=== PATIENT | female | born 1940 | race Caucasian/White ===

== ENCOUNTER 2021-03-25 14:31 | Outpatient (CLI) | payer MEDICARE, SELFPAY ==
--- NOTE | 2021-03-25 | ECG_ITS ---
Measurements Intervals [place] Rate: 68 P: 14 MO: 215 QRS: 9 QRSD: 98 T: 50 QT: 406 QTc: 434 Interpretive Statements SINUS RHYTHM WITH FIRST DEGREE AV BLOCK BASELINE ARTIFACT- I, II, III, AVR, AVL, AVF, V4-V6 ABNORMAL ECG Electronically Signed On 03-25-2021 15:20:29 CDT by Edwin Wasserman D.O.
[2021-03-25 15:08] LABS: Albumin Level 4.2 g/dL (3.5-5.1); Estimated Glomerular Filt Rate 48
== END 2021-03-25 14:32 | disposition home or self-care (01) ==
PROVIDERS: Visit Provider Orthopaedic Surgery
DX: Z01.818 Encounter for other preprocedural examination (principal); M17.11 Unilateral primary osteoarthritis, right knee; M81.0 Age-related osteoporosis without current pathological fracture; I10 Essential (primary) hypertension; I44.0 Atrioventricular block, first degree
CPT/HCPCS: 36415; 82040; 82565; 93005

== ENCOUNTER 2021-05-05 13:45 | Outpatient (CLI) | payer MEDICARE, SELFPAY ==
[2021-05-05 15:42] LABS: Basophils Percent Auto 0.5 % (0.2-1.2); Eosinophils Absolute Auto 0.1 K/mm3 (0-0.3); Eosinophils Percent Auto 2.2 % (0-4.4); Hematocrit 40.6 % (37.0-47.0); Hemoglobin 13.2 g/dL (12.0-15.0); Immature Granulocyte Absolute 0.01 K/mm3 (0.00-0.031); Immature Granulocyte Percent A 0.2 % (0-0.5); Lymphocytes Absolute Auto 2.15 K/mm3 (0.9-3.2); Lymphocytes Percent Auto 36.6 % (18.3-44.2); Mean Corpuscular HGB Conc 32.5 g/dl (32-36); Mean Corpuscular Volume 92.3 fl (80-100); Mean Platelet Volume 9.2 fl (7.4-10.4); Monocytes Absolute Auto 0.6 K/mm3 (0.1-0.6); Monocytes Percent Auto 10.2 % (2.6-8.5); Neutrophils Percent Auto 50.3 % (45.5-73.1); Platelet Count Result 221 k/mm3 (150-375); Red Cell Distribution Width 12.8 % (11.5-14.5); White Blood Count 5.9 K/mm3 (4.5-10.0)
[2021-05-05 15:50] LABS: Estimated Glomerular Filt Rate 54; Glucose 124 mg/dL (65-110)
[2021-05-05 16:29] LABS: Urine Cotinine NEGATIVE
[2021-05-05 17:24] LABS: Hemoglobin A1C 5.6 % (<5.7)
== END 2021-05-05 13:46 | disposition home or self-care (01) ==
LOC: ANHSURGERY 13:51
PROVIDERS: PCP Family Medicine; Visit Provider Orthopaedic Surgery
DX: M17.11 Unilateral primary osteoarthritis, right knee (principal); Z01.818 Encounter for other preprocedural examination
CPT/HCPCS: 80307; 82565; 82947; 83036; 85025; 87081

== ENCOUNTER 2021-08-16 07:42 | Outpatient (CLI) | payer MEDICARE, SELFPAY ==
[2021-08-16 09:40] LABS: Basophils Absolute Auto 0.1 K/mm3 (0.0-0.1); Basophils Percent Auto 1.1 % (0.2-1.2); Eosinophils Absolute Auto 0.2 K/mm3 (0-0.3); Eosinophils Percent Auto 3.7 % (0-4.4); Immature Granulocyte Absolute 0.01 K/mm3 (0.00-0.031); Immature Granulocyte Percent A 0.2 % (0-0.5); Lymphocytes Absolute Auto 1.67 K/mm3 (0.9-3.2); Lymphocytes Percent Auto 30.9 % (18.3-44.2); Mean Corpuscular HGB Conc 33.3 g/dl (32-36); Mean Corpuscular Hemoglobin 30.7 pg (26-34); Mean Platelet Volume 8.9 fl (7.4-10.4); Monocytes Absolute Auto 0.5 K/mm3 (0.1-0.6); Neutrophils Absolute Auto 2.9 K/mm3 (1.3-6.7); Neutrophils Percent Auto 54.1 % (45.5-73.1); Platelet Count Result 160 k/mm3 (150-375); Red Blood Count 4.24 M/mm3 (4.2-5.4); Red Cell Distribution Width 12.7 % (11.5-14.5); White Blood Count 5.4 K/mm3 (4.5-10.0)
[2021-08-16 09:43] LABS: Albumin Level 4.1 g/dL (3.5-5.1); Estimated Glomerular Filt Rate > 60; Glucose 133 mg/dL (65-110)
[2021-08-16 10:48] LABS: Hemoglobin A1C 5.5 % (<5.7)
[2021-08-16 12:30] LABS: Urine Cotinine NEGATIVE
== END 2021-08-16 07:43 | disposition home or self-care (01) ==
LOC: ANHSURGERY 07:51
PROVIDERS: PCP Family Medicine; Visit Provider Orthopaedic Surgery
DX: Z01.818 Encounter for other preprocedural examination (principal); M17.11 Unilateral primary osteoarthritis, right knee
CPT/HCPCS: 80307; 82040; 82565; 82947; 83036; 85025; 87081

== ENCOUNTER 2021-09-07 00:05 | Day surgery (SDC) | payer MEDICARE, SELFPAY ==
[2021-05-05 14:07] VITALS: BP 130/77; PULSE 93; RESP 18; TEMP 36.6; O2SAT 95; BMI 33.5
[2021-08-16 08:11] VITALS: BP 149/93; PULSE 68; RESP 18; TEMP 36.4; O2SAT 94; BMI 35.2
--- NOTE | 2021-08-16 09:25 | PC.NURSE ---
Report to the Outpatient Waiting Room, entrance under the green pavilion located off [facility], at time ___829____ on date ___09/07/21____. OR Time: 1029___. - You and your visitor will be asked a series of questions to screen for COVID 19 for your protection. - A mask is required within the hospital. - Only one visitor is allowed at this time. Patient visitors will be guided where to wait when not with patient. Preoperative COVID Testing Requirements: No COVID Test needed if: (proof is required; if not received patient will have Rapid Test prior to entry) - Patient has received COVID Vaccine at least 14 days prior to procedure date or - Patient has positive COVID test result within last 90 days of surgery date. COVID Test needed if above criteria is not met If not COVID vaccinated a COVID test must be conducted within 72 hours of surgery and patient is asked to isolate self from time of testing until procedure. You will go to the [facility] for your COVID testing. The [facility] site is located at the corner of [address] [facility]. You will only be called if COVID results are positive and your surgeon may reschedule your elective surgery date. Patients may have clear liquids (water, carbonated beverages, clear teas, apple juice) until 3 hours prior to surgery with a maximum of 20 ounces. - No food from midnight until time of surgery - Infants may have breast milk until 4 hours before surgery, infant formula 6 hours prior to surgery. - Children will be allowed to drink immediately following surgery. If applicable, please bring a bottle or sippy cup to assist with drinking. Juice, water, soda, and popsicles are readily available. For infants on formula, please bring formula the day of surgery. Pacifiers are allowed. Take the following medications with a SIP of water the morning of surgery: ____METOPROLOL Medications to discontinue per physician _ASPIRIN & IBUPROFEN 7 DAYS PRE-OP, ALL VITAMINS/SUPPLEMENTS 3 DAYS PRE-OP Date to take last dose Please no make-up, nail chadian, hairspray, perfume, deodorant, or body powder the day of surgery. No jewelry (including any body piercings) or valuables the day of surgery, leave them at home. Please take a shower or bath the night before, or the morning of, surgery with an antibacterial soap. Wear comfortable, loose fitting clothing. Children are encouraged to wear pajamas. - Jewelry must be removed prior to entering the operating room. Rings and piercings that are not removed may be cut off. - The hospital will not accept responsibility for valuables. - Please leave all valuables, including medications, at home the day of surgery. If you are going home after surgery, a licensed trash collector truck driver must drive you home. - NO public transportation without another adult. - We recommend that an adult stay with you for 24 hours following discharge. - We also recommend that you do not drive, make important decision, drink alcoholic beverages, or take any drugs that were not prescribed by your health care provider for at least 24 hours after your discharge time. For Pediatric surgeries, we recommend two adults accompany the child home (only one inside the building at this time). Follow any additional instructions given to you from your surgeon. Telephone instructions given to _PATIENT and asked if any additional questions and then verbalized understanding. Patient advised to call surgeon office or pre surgery nurse liaison [phone] if any additional questions.
--- NOTE | 2021-09-06 10:03 | P.PNAN_ITS ---
Anes - Initial Pre Proc Eval Procedure: Operation Date: 09/07/21 10:30 Proposed Procedures p Right Total Knee Arthroplasty - Melquiades Smith MD Date/Time: 09/06/21 10:03 Surgeon: Melquiades Smith MD Pre Op Diagnosis: primary osteoarthritis rt knee Patient Data Age: 80 Gender: F Height: 1.52 m Weight: 81.9 kg Last Vital Signs Temp 36.4 C L 08/16/21 08:11 Pulse 68 08/16/21 08:11 Resp 18 08/16/21 08:11 BP 149/93 H 08/16/21 08:11 Pulse Ox 94 08/16/21 08:11 Allergies Allergy/AdvReac Type Severity Reaction Status Date / Time hormone patches Allergy Mild Swelling, Uncoded 09/07/21 08:26 REDNESS AT SITE Home Medications Medication Instructions Recorded Confirmed Type ibuprofen 800 mg tablet 800 mg PO TID PRN 02/25/21 09/07/21 History metoprolol succinate 25 mg 25 mg PO QAM 02/25/21 09/07/21 History tablet,extended release 24 hr omeprazole 20 mg tablet,delayed 20 mg PO DAILY 02/25/21 09/07/21 History release venlafaxine 150 mg tablet,extended 150 mg PO HS 02/25/21 09/07/21 History release 24 hr aspirin 81 mg tablet,delayed 81 mg PO DAILY 05/05/21 09/07/21 History release ascorbic acid (vitamin C) 1 g PO DAILY 08/16/21 09/07/21 History calcium carbonate-vitamin D3 1 tablet PO DAILY 08/16/21 09/07/21 History [Calcium + D] cholecalciferol (vitamin D3) 50 mcg PO DAILY 08/16/21 09/07/21 History lgnwhqjipojf-Gc-mtba-minerals 1 tablet PO DAILY 08/16/21 09/07/21 History [Multiple Vitamin, Womens] Patient hx anesthesia problems: none Family hx anesthesia problems: none Results Review: All pre-operative results and documents have been reviewed as part of the pre-operative evaluation. [facility] Past Medical History Medical History (Updated 09/06/21 @ 10:04 by Richardson Mccord MD) Hypertension Obesity Osteoporosis Surgical History Surgical History History of surgery on arm Family History Family History Mother Arthritis Social History Social History Smoking status: Never smoker Alcohol intake: never Substance use: never Living arrangements: with family Additional living arrangements comments: [facility] Spiritual care concerns: No Anes - Eval Final PreProcedure Day of Procedure 09/06/21 10:03 Patient weight: obese Heart: regular rate and rhythm Lungs: clear to auscultation and normal air movement Airway: Mallampati scale class II Neurological: alert and oriented Last oral intake: >/= 8 hours ASA classification: III Emergent: no Anesthetic plan: proceed Anesthesia type and monitoring: general LMA Results Review: All pre-operative results and documents have been reviewed as part of the pre-operative evaluation. Informed Consent: The patient's anesthetic plan and its attendant risks and benefits were discussed with the patient/family/POA. Questions were solicited and answers provided to the satisfaction of the patient/family/POA.
[2021-09-07] VITALS (15 sets, daily range): BP systolic 87–149; BP diastolic 49–79; PULSE 67–86; RESP 10–20; TEMP 36.4–36.9; O2SAT 85–98; BMI 37.1
--- NOTE | ~2021-09-07 | XR_ITS ---
EXAMINATION: XR knee RT 2V DATE: 09/07/2021 13:34 INDICATION: Right knee arthroplasty. Postop. TECHNIQUE: 2 views of right knee were obtained. COMPARISON: Right knee radiographs 08/30/2021 FINDINGS: There is a total right knee arthroplasty with patellar resurfacing in near-anatomic alignme nt. No fracture. There is gas in the knee joint and soft tissues, consistent with recent surgery. IMPRESSION: 1. Total right knee arthroplasty in near-anatomic alignment. Reviewed, dictated and finalized at location B. DYNAMICS TEACHER
[2021-09-07] MEDS: LACTATED RINGERS 1,000 ML 30 ML IV CONT ×2 (08:41→13:21)
[2021-09-07] MEDS: ACETAMINOPHEN 500 MG TABLET 1000 MG PO (08:41)
[2021-09-07] MEDS: TRANEXAMIC ACID 1,000MG/ISO100 1,000 MG/100 ML BAG 200 MG IVPB (10:10)
--- NOTE | 2021-09-07 10:10 | WPDHPUPDATE1 ---
History and Physical Update Update Date/Time: 09/07/21 10:10 History and Physical has been reviewed, including an updated exam of the patient. There are NO changes in the patient's condition. Risks, benefits, and alternatives have been discussed and questions answered. Patient agrees to proceed with procedure.
--- NOTE | 2021-09-07 11:01 | WPDANESPNB ---
Anes - Peripheral Nerve Block Date/Time: 09/07/21 11:01 I have discussed with the patient/family/POA the placement of a peripheral nerve block for post-operative pain management, including associated risks, benefits, complications, and side effects. Alternative methods of post-operative analgesia were detailed. Questions were solicited and answers provided to the satisfaction of the patient/family/POA. Time-Out: A pre-procedural Time-Out was completed immediately before starting the procedure and confirmed: Patient Identification, Site, Procedure, Patient Position and the Availability of Requisite Equipment. Clinical Indications: Acute post-operative pain management requested by the operative surgeon. Nerve Block Insertion Note Anes-nerve block: adductor canal right Patient position: supine Skin prep: chlorhexidine Needle: 22 gauge, stimulating, insulated echogenic needle. Needle length: 80 mm Technique: ultrasound Technique comment: in plane Injectate: bupivacaine 0.5% with epi 5 mcg/ml (30cc) Observations: tolerated well Complications: none Procedure start time:: 1055 Procedure end time:: 1100
[2021-09-07] MEDS: ceFAZolin 2 GM/D5W 50 ML 2 GM/50 ML BAG IVPB ×2 (11:07→18:20)
--- NOTE | 2021-09-07 14:28 | SUR.PHASEI ---
1430 sbar faxed floor notified
--- NOTE | 2021-09-07 15:20 | ADMGEN ---
This patient, Barbara Castillo, was admitted to -. Patient/family oriented to hospital policies and general routines including ID bracelet, bed and alarms, visiting hours, pain management, procedures, bathroom and other care routines, personal items, smoking policy, room service/diet, and visiting hours. Information on how to activate the Rapid Response Team has been discussed. Patient/Family are encouraged to report perceived risks to care and to ask questions if they do not understand what they are told or what they should do.
[2021-09-07] MEDS: SODIUM CHLORIDE 0.9% IV 1,000 ML 125 ML IV CONT (16:07)
--- NOTE | 2021-09-07 16:20 | W.PM.PROC2 ---
Procedure Note - Detailed Date of Procedure 09/07/21 Pre-op Diagnosis Osteoarthritis right knee Post-op Diagnosis same Procedure Performed Right total knee arthroplasty. Surgeon Melquiades Smith MD Electrical Repairer Katerine Saba PA-C Anesthesia general and regional Description of Procedure The patient was given a nerve block preoperatively, and then brought to the operating room. A general anesthetic was administered. The leg was prepped and draped in the usual sterile fashion. The limb was elevated and the tourniquet inflated to 300 mmHg during initial exposure, and cementation. A longitudinal incision was created along the medial border of the patella and patellar tendon, and a minimally invasive optimized mid-vastus approach to the knee was performed. A mild medial release was taken. The knee was then flexed. The osteophytes were carefully removed. The intramedullary guide was placed in the femoral canal. The distal femoral resection was then taken with the oscillating saw. The collateral ligaments were carefully protected. The tibia was carefully exposed. The jig was applied, and the proximal tibia was resected according to preoperative plan. The knee was balanced in extension. Appropriate releases were taken where needed. The anterior cruciate ligament and meniscal remnants were removed. The posterior cruciate ligament was preserved. The patella was measured. Patellar resection was carried out with the oscillating saw. The lug holes drilled. The femur was sized and rotation assessed using a combination of gap balancing, posterior referencing, and the AP axis. The 4 in 1 cutting block was used to finish the femoral cuts after equal gaps were assured. The lug holes were drilled. The osteophytes were carefully removed from the back of the knee. The knee was copiously irrigated with antibiotic solution periodically throughout the procedure. The meniscal remnants were removed. The spacer block was used to confirm equal flexion and extension gaps. Further releases were performed as needed. The tibia was sized and broached. The bony surfaces were prepared for cementing with pulsatile lavage. The real tibial component was cemented into position followed by the femur and patella. Patellar tracking was carefully assessed. No additional releases were required. The wound was closed with #1 Vycril suture, #2 Quill suture, 0-Quill suture, and 3-0 barbed suture followed by Steri-Strips. A sterile bulky dressing was applied. Meticulous hemostasis was maintained throughout the procedure. There were no complications. The patient was extubated and brought to the recovery room in stable condition after the application of sterile dressing with Nadeem bandage. Implants Sean Triathlon knee system, low profile cemented tibia size 4, cemented femoral component size 4 ,and an 11 mm cruciate stabilizing polyethylene insert. 35mm asymmetric all poly patella component. Estimated Blood Loss 100 Drains No Pathology none sent Complications No immediate complications Condition stable Disposition PACU
[2021-09-07] MEDS: SENNA/DOCUSATE SODIUM TABLET 2 TAB PO (16:44)
[2021-09-07] MEDS: ASPIRIN 81 MG ENTERIC TABLET PO (16:44)
[2021-09-07] MEDS: VENLAFAXINE HCL XR 75 MG CAP.ER.24H 150 MG PO (20:21)
[2021-09-08 00:45] VITALS: BP 106/48; PULSE 68; RESP 20; TEMP 36.5; O2SAT 94
[2021-09-08] MEDS: ceFAZolin 2 GM/D5W 50 ML 2 GM/50 ML BAG IVPB ×2 (03:02→10:54)
[2021-09-08 03:40] VITALS: BP 120/56; PULSE 73; RESP 20; TEMP 36.3; O2SAT 94
[2021-09-08 06:09] LABS: Basophils Percent Auto 0.1 % (0.2-1.2); Hematocrit 32.6 % (37.0-47.0); Hemoglobin 11.1 g/dL (12.0-15.0); Immature Granulocyte Absolute 0.03 K/mm3 (0.00-0.031); Immature Granulocyte Percent A 0.3 % (0-0.5); Lymphocytes Absolute Auto 1.41 K/mm3 (0.9-3.2); Lymphocytes Percent Auto 14.5 % (18.3-44.2); Mean Corpuscular Volume 88.1 fl (80-100); Mean Platelet Volume 9.4 fl (7.4-10.4); Monocytes Absolute Auto 0.8 K/mm3 (0.1-0.6); Monocytes Percent Auto 8.4 % (2.6-8.5); Neutrophils Absolute Auto 7.5 K/mm3 (1.3-6.7); Neutrophils Percent Auto 76.7 % (45.5-73.1); Platelet Count Result 177 k/mm3 (150-375); White Blood Count 9.8 K/mm3 (4.5-10.0)
[2021-09-08 06:18] LABS: Anion Gap 10 mmol/L (8-16); Blood Urea Nitrogen 24 mg/dL (7-17); Calcium 8.6 mg/dL (8.4-10.2); Carbon Dioxide 23 mmol/L (22-30); Chloride 100 mmol/L (98-107); Estimated CRCL calculation 44 ml/min; Estimated Glomerular Filt Rate > 60; Glucose 117 mg/dL (65-110); Potassium 4.3 mmol/L (3.4-5.0); Sodium 133 mmol/L (137-145)
[2021-09-08 08:00] VITALS: O2SAT 94
--- NOTE | 2021-09-08 08:01 | P.PNAN_ITS ---
Anes - Prog Note Post-Op Date/Time: 09/08/21 08:01 Cardiovascular status: normal Respiratory status: normal Airway patency: baseline Mental status: baseline Post-Op hydration status: normal Vital Signs: Last Vital Signs Temp 36.3 C L 09/08/21 03:40 Pulse 73 09/08/21 03:40 Resp 20 09/08/21 03:40 BP 120/56 L 09/08/21 03:40 Pulse Ox 94 09/08/21 03:40 Pain Score (VAS): 4 I/O: Intake & Output 09/07/21 09/08/21 09/08/21 23:59 07:59 15:59 Intake Total 2018 490 Output Total 400 Balance 2018 90 Laboratory Tests 09/08/21 05:25 09/08/21 05:25 09/07/21 09/08/21 09/08/21 08:25 05:25 05:25 WBC 9.8 RBC 3.70 L Hgb 11.1 L Hct 32.6 L MCV 88.1 MCH 30.0 MCHC 34.0 RDW 12.0 Plt Count 177 MPV 9.4 Immature Gran % (Auto) 0.3 Neut % (Auto) 76.7 H Lymph % (Auto) 14.5 L [place] % (Auto) 8.4 Eos % (Auto) 0.0 Baso % (Auto) 0.1 L Lymph # (Auto) 1.41 [place] # (Auto) 0.8 H Eos # (Auto) 0.0 Baso # (Auto) 0.0 Abs Immat Gran (auto) 0.03 Absolute Neuts (auto) 7.5 H Absolute Nucleated RBC 0.0 Nucleated RBC % 0.0 Sodium 133 L Potassium 4.3 Chloride 100 Carbon Dioxide 23 Anion Gap 10 BUN 24 H Creatinine 0.90 Estim Creat Clear Calc 44 Estimated GFR > 60 Glucose 117 H Calcium 8.6 Blood Type B Positive Antibody Screen Negative Post-procedural complaints: none Patient Feedback: Patient satisfied with anesthetic care.
[2021-09-08 08:56] VITALS: BP 109/90; PULSE 80; PULSE 81; RESP 20; TEMP 37.2; O2SAT 97
[2021-09-08] MEDS: ASPIRIN 81 MG ENTERIC TABLET PO (08:56)
[2021-09-08] MEDS: polyethylene glycoL 3350 17 GM POWD.PACK PO (08:56)
[2021-09-08] MEDS: PANTOPRAZOLE 40 MG TABLET PO (08:56)
[2021-09-08] MEDS: METOPROLOL SUCCINATE EXT REL 25 MG TABCR PO (08:56)
[2021-09-08] MEDS: SENNA/DOCUSATE SODIUM TABLET 2 TAB PO (08:56)
[2021-09-08 11:58] VITALS: BP 121/70; PULSE 70; RESP 18; TEMP 36.9; O2SAT 99
--- NOTE | 2021-09-08 12:44 | PM.DS ---
DS: Admitting Diagnosis Discharge Date 09/08/21 Admitting Diagnosis OA knee Right DS: Discharge Diagnosis Discharge Diagnosis (1) Status post total right knee replacement: Code(s): Z96.651 - Presence of right artificial knee joint Status: Acute Assessment and Plan: Postop day 1: Right total knee arthroplasty. Patient tolerated procedure well. No complications. Pain manageable with pain medication. No numbness or tingling. We had a lengthy discussion regarding postoperative wound care, limitations, expectations, and exercises. Patient shows good understanding. He has had initial physical therapy and is tolerating it well. She understands to read to the green instruction sheet. DVT prophylaxis: 81 mg baby aspirin b.i.d. for 14 days. Pain medication: Percocet. Ibuprofen. Patient has followup appointment with Dr. Smith in 1 week. 09/14/21 at 1:30 pm. DS: Summary Hospital Course Reason for hospitalization: Total knee arthroplasty Hospital Course: Patient tolerated procedure well. Has had initial PT/OT. No complications. Pain well managed. Status at Discharge Functional status at discharge: uses cane/walker Overall status at discharge: patient is progressing back to baseline Time Spent with Patient Time attestation: Total time spent providing and/or coordinating discharge services: Exam Narrative: Overweight elderly female. Baseline mental status. Hard of hearing. Resting comfortably in bed. No acute distress. A&O x3. Wearing compression socks bilaterally. Dressing intact with no drainage. Moderate swelling. No ecchymosis. No erythema. No hematoma. Good early range of motion. Calf nontender. Neurologic status intact. No varicosities. Distal pulses palpable. DS: Data Data Completed and Pending Labs on day of discharge: Labs from last 24 hours 09/08/21 09/08/21 05:25 05:25 WBC 9.8 RBC 3.70 L Hgb 11.1 L Hct 32.6 L MCV 88.1 MCH 30.0 MCHC 34.0 RDW 12.0 Plt Count 177 MPV 9.4 Immature Gran % (Auto) 0.3 Neut % (Auto) 76.7 H Lymph % (Auto) 14.5 L [place] % (Auto) 8.4 Eos % (Auto) 0.0 Baso % (Auto) 0.1 L Lymph # (Auto) 1.41 [place] # (Auto) 0.8 H Eos # (Auto) 0.0 Baso # (Auto) 0.0 Abs Immat Gran (auto) 0.03 Absolute Neuts (auto) 7.5 H Absolute Nucleated RBC 0.0 Nucleated RBC % 0.0 Sodium 133 L Potassium 4.3 Chloride 100 Carbon Dioxide 23 Anion Gap 10 BUN 24 H Creatinine 0.90 Estim Creat Clear Calc 44 Estimated GFR > 60 Glucose 117 H Calcium 8.6 Discharge Plan Discharge Patient Disposition: Home, Self-Care Discharge Instructions: See green instruction sheet Stand Alone Forms: General Discharge Instructions Follow-up/Referrals: Katerine Saba PA [Physician Silk Presser] - Discharge Medications: New aspirin 81 mg tablet,delayed release (DR/EC) 81 mg PO BID 14 Days Qty: 28 RF: 0 oxycodone-acetaminophen 5-325 mg tablet 1 - 2 tablet PO Q4-6H MDD 6 PRN (Reason: pain) Qty: 30 RF: 0 Continued omeprazole 20 mg tablet,delayed release (DR/EC) 20 mg PO DAILY RF: 0 venlafaxine 150 mg tablet extended release 24hr 150 mg PO HS RF: 0 ibuprofen 800 mg tablet 800 mg PO TID PRN (Reason: Pain) RF: 0 metoprolol succinate 25 mg tablet extended release 24 hr 25 mg PO QAM RF: 0 xtvlsowlreye-Fg-njwy-minerals Tablet 1 tablet PO DAILY RF: 0 ascorbic acid (vitamin C) 1,000 mg Tablet 1 g PO DAILY RF: 0 calcium carbonate-vitamin D3 600 mg(1,500mg) -200 unit Tablet 1 tablet PO DAILY RF: 0 cholecalciferol (vitamin D3) 50 mcg (2,000 unit) Tablet 50 mcg PO DAILY RF: 0 Held aspirin [Adult Low Dose Aspirin] 81 mg tablet,delayed release (DR/EC) 81 mg PO DAILY RF: 0 Hold Instructions: Resume on 09/22/21. Take twice a day for 2 weeks then back to one per day dose
== END 2021-09-08 14:42 | disposition home or self-care (01) ==
LOC: ANHSURGERY 07:55 → ANH2MED 15:40
PROVIDERS: Physician Assistant Surgical; PCP Family Medicine; Visit Provider Orthopaedic Surgery
PROC: (CPT 27447; principal; 2021-09-07 10:30)
DX: M17.11 Unilateral primary osteoarthritis, right knee (principal); G89.18 Other acute postprocedural pain; I10 Essential (primary) hypertension; M81.0 Age-related osteoporosis without current pathological fracture; Z79.82 Long term (current) use of aspirin; E66.9 Obesity, unspecified; Z68.37 Body mass index [BMI] 37.0-37.9, adult
CPT/HCPCS: 27447; 64447; 36415; 73560; 80048; 80307; 82040; 82565; 82947; 83036; 85025; 86850; 86900; 86901; 87081; 97110; 97116; 97161; 97166; A9270; C1713; C1776; J0131; J0171; J0330; J0690; J1100; J1885; J2250; J2270; J2370; J2405; J2704; J2710; J2795; J3010; J7030; J7120

== ENCOUNTER 2023-02-04 08:28 | Emergency (ER) | payer MEDICARE, SELFPAY ==
[2023-02-04] VITALS (10 sets, daily range): BP systolic 133–147; BP diastolic 70–94; PULSE 71–97; RESP 18–20; TEMP 36.4; O2SAT 95–100
--- NOTE | ~2023-02-04 | XR_ITS ---
EXAMINATION: XR chest 2V DATE: 02/04/2023 10:03 INDICATION: Cough and congestion TECHNIQUE: Frontal and lateral views of the chest are obtained COMPARISON: None available FINDINGS: There are minimal airspace opacities of the lung bases. No pleural effusion or pneumothorax . The cardiomediastinal silhouette is normal. There is severe thoracic spondylosis. IMPRESSION: 1. Bibasilar airspace opacities, consistent with atelectasis versus pneumonia. Reviewed, dictated and finalized at location A.
[2023-02-04 10:22] LABS: Influenza A QL RT-PCR Negative (Negative); Influenza B QL RT-PCR Negative (Negative); RSV RNA, RT-PCR Negative (Negative); SARS-CoV-2 RNA PCR Negative (Negative)
[2023-02-04] MEDS: IPRATROPIUM BR 0.02% INH SOLN 0.5 MG/2.5 ML VIAL INHALATION (10:47)
[2023-02-04] MEDS: LEVALBUTEROL NEB 1.25 MG/3 ML INHALATION (10:47)
--- NOTE | 2023-02-04 11:22 | ED.GENADULT ---
HPI - General Adult General Chief complaint: Upper Respiratory Infection Stated complaint: cough, congestion Time Seen by Provider: 02/04/23 09:42 History of Present Illness HPI narrative: Patient is an 82-year-old female who presents ER with chest congestion. Ongoing over the last week. Associated shortness of breath. She does have some cough as well. No fevers or chills. She was seen by her PCP and given an inhaler but does not feel like it is helping her. No known sick contacts. No orthopnea. Related Data Home Medications Medication Instructions Recorded Confirmed ibuprofen 800 mg tablet 800 mg PO TID PRN Pain 02/25/21 11/29/21 metoprolol succinate 25 mg 25 mg PO QAM 02/25/21 11/29/21 tablet,extended release 24 hr omeprazole 20 mg tablet,delayed 20 mg PO DAILY 02/25/21 11/29/21 release aspirin 81 mg tablet,delayed 81 mg PO DAILY 05/05/21 11/29/21 release (Adult Low Dose Aspirin) ascorbic acid (vitamin C) 1,000 mg 1 g PO DAILY 08/16/21 11/29/21 tablet calcium carbonate 600 mg-vitamin 1 tablet PO DAILY 08/16/21 11/29/21 D3 5 mcg (200 unit) tablet cholecalciferol (vitamin D3) 50 50 mcg PO DAILY 08/16/21 11/29/21 mcg (2,000 unit) tablet szfkwfazlhyd-El-sstd-minerals 1 tablet PO DAILY 08/16/21 11/29/21 Allergies Allergy/AdvReac Type Severity Reaction Status Date / Time hormone patches Allergy Mild Swelling, Uncoded 02/04/23 09:40 REDNESS AT SITE Review of Systems Review of Systems: All systems reviewed & are unremarkable except as noted in HPI and below Constitutional: Constitutional: Denies chills, Denies fatigue and Denies fever(s) ENT: Denies nasal congestion and Denies sore throat Cardiovascular: Cardiovascular: Denies chest pain and Denies rapid heart rate Respiratory: Respiratory: Reports chest congestion, Reports cough and Reports dyspnea Gastrointestinal: Gastrointestinal: Denies abdominal pain, Denies nausea and Denies vomiting PMF Past Medical History Medical History Hypertension Obesity Osteoporosis Surgical History Surgical History History of surgery on arm Family History Family History Mother Arthritis Social History Social History (Updated 09/21/22 @ 10:37 by Ashley Wan MA) Smoking status: Never smoker Second hand tobacco smoke exposure: No Alcohol intake: never Substance use: never Substance use type: does not use Lack of Transportation: No Lack of Food: Never True Current Housing: I Have Housing Concerned About Future Housing: No Difficulty Paying Gas/Electric Bills: No Difficulty Paying for Meds: No Currently Unemployed: No Education: High School Diploma/GED Difficulty w/ Childcare or Family Care: No Living arrangements: with family [facility] Spiritual care concerns: No Exam Narrative: GENERAL: Well-appearing, well-nourished, and in no acute distress. HEAD: Normocephalic, atraumatic. EYES: PERRL and EOMI. ENT: Mucous membranes moist. CHEST: Wheezing worse right as opposed to left. No respiratory distress. HEART: Regular rate and rhythm. Normal peripheral pulses. ABDOMEN: Soft, nontender, nondistended. EXTREMITIES: Normal range of motion. No edema. SKIN: Warm, dry, no rash. NEURO: Alert and oriented x3. PSYCH: Normal mood and affect. Course Course Emergency Course: Patient resting comfortably, COVID/flu negative, chest x-ray borderline for pneumonia, patient with increased wheezing after breathing treatment so she will be giving a continuous neb. After continuous nebulizer treatment patient has significantly improved lung sounds and is appropriate for discharge. No hypoxia. We will add on steroids and azithromycin to treatment plan. Vital Signs Vital signs: Vital Signs Temperature
[2023-02-04] MEDS: IPRATROPIUM BR 0.02% INH SOLN 0.5 MG/2.5 ML VIAL 1 MG INHALATION (12:37)
[2023-02-04] MEDS: LEVALBUTEROL NEB 1.25 MG/3 ML 2.5 MG INHALATION (12:37)
== END 2023-02-04 14:14 | disposition home or self-care (01) ==
PROVIDERS: Physician Assistant; Emergency Provider Emergency Medicine
DX: J18.9 Pneumonia, unspecified organism (principal); J40 Bronchitis, not specified as acute or chronic; Z20.822 Contact with and (suspected) exposure to COVID-19; I10 Essential (primary) hypertension; E66.9 Obesity, unspecified; Z68.34 Body mass index [BMI] 34.0-34.9, adult; M81.0 Age-related osteoporosis without current pathological fracture
CPT/HCPCS: 71046; 87637; 94640; 99283

== ENCOUNTER 2023-03-19 17:56 | Emergency (ER) | payer MEDICARE, SELFPAY ==
--- NOTE | ~2023-03-19 | XR_ITS ---
Left Knee Technique: AP, lateral, and oblique views were obtained. Clinical History: Status post fall Findings: No fracture or dislocation is seen. There is moderate degenerative change of the medial com partment, with medial compartment narrowing and medial joint and osteophyte formation. There is moder ate patellofemoral compartment degenerative change with probable joint space narrowing and osteophyte formation. There is chondrocalcinosis of the menisci. No joint effusion is seen. Impression: Moderate degenerative change of the medial and patellofemoral compartments. Chondrocalcinosis of the menisci. Reviewed, dictated and finalized at location M. Impression: Moderate degenerative change of the medial and patellofemoral compartments. Chondrocalcinosis of the menisci.
--- NOTE | ~2023-03-19 | CT_ITS ---
Non-contrast Head CT History: Status post fall, headache Technique: Axial non-contrast imaging of the brain was performed. Dose reduction technique was used on this scan by utilizing automated exposure control and iterative reconstruction technique. The dose -length product (DLP) was 529.67 mGy-cm. Findings: There is no evidence of intracranial hemorrhage, mass lesion, or acute infarct. Brain par enchyma appears normal. The ventricles and subarachnoid spaces are normal in size. The calvarium ap pears normal. The visualized paranasal sinuses and mastoid air cells are clear. Impression: No significant abnormality seen. Reviewed, dictated and finalized at location . Impression: No significant abnormality seen.
[2023-03-19 17:57] VITALS: BP 138/67; PULSE 87; RESP 18; TEMP 36.2; O2SAT 95
--- NOTE | 2023-03-19 18:27 | ED.FALL ---
HPI - Fall General Chief Complaint: Fall Stated Complaint: fall Time Seen by Provider: 03/19/23 18:02 History of Present Illness HPI Narrative: Patient is an 82-year-old female presenting after a fall. Patient states that she was walking on a sidewalk that had a large uneven crack in it. She tripped on it and fell striking the left side of her head. She did not lose consciousness. States that she has some dull ache on the left side of her head but denies any other pain. No neck or back pain. No vision changes. Patient's daughter is at bedside and states that she does have some blood in her left eye. States that she had a nosebleed earlier which has resolved. No chest pain, lightheadedness, shortness of breath, numbness or weakness, nausea or vomiting. States that she also landed on her left knee and it is somewhat sore. Related Data Home Medications Medication Instructions Recorded Confirmed ibuprofen 800 mg tablet 800 mg PO TID PRN Pain 02/25/21 11/29/21 metoprolol succinate 25 mg 25 mg PO QAM 02/25/21 11/29/21 tablet,extended release 24 hr omeprazole 20 mg tablet,delayed 20 mg PO DAILY 02/25/21 11/29/21 release aspirin 81 mg tablet,delayed 81 mg PO DAILY 05/05/21 11/29/21 release (Adult Low Dose Aspirin) ascorbic acid (vitamin C) 1,000 mg 1 g PO DAILY 08/16/21 11/29/21 tablet calcium carbonate 600 mg-vitamin 1 tablet PO DAILY 08/16/21 11/29/21 D3 5 mcg (200 unit) tablet cholecalciferol (vitamin D3) 50 50 mcg PO DAILY 08/16/21 11/29/21 mcg (2,000 unit) tablet crxtibmhldqc-Ww-dhah-minerals 1 tablet PO DAILY 08/16/21 11/29/21 Allergies Allergy/AdvReac Type Severity Reaction Status Date / Time hormone patches Allergy Mild Swelling, Uncoded 02/04/23 09:40 REDNESS AT SITE Review of Systems Review of Systems: All systems reviewed & are unremarkable except as noted in HPI and below PMFSH Past Medical History Medical History Hypertension Obesity Osteoporosis Surgical History Surgical History History of surgery on arm Family History Family History Mother Arthritis Social History Social History Smoking status: Never smoker Second hand tobacco smoke exposure: No Alcohol intake: never Substance use: never Substance use type: does not use Lack of Transportation: No Lack of Food: Never True Current Housing: I Have Housing Concerned About Future Housing: No Difficulty Paying Gas/Electric Bills: No Difficulty Paying for Meds: No Currently Unemployed: No Education: High School Diploma/GED Difficulty w/ Childcare or Family Care: No Living arrangements: with family Additional living arrangements comments: [facility] Spiritual care concerns: No Exam Narrative: GENERAL: Well-appearing, well-nourished, and in no acute distress. HEAD: Normocephalic, atraumatic. EYES: PERRLA and EOMI. +left subconjunctival hemorrhage ENT: Nares clear, no rhinorrhea or epistaxis. Mucous membranes moist. small amount of dried blood L nare; no septal hematoma, no active bleeding NECK: Supple. CHEST: Clear to auscultation. No respiratory distress. HEART: Regular rate and rhythm. ABDOMEN: Soft, nontender, nondistended EXTREMITIES: Normal range of motion. No edema. SKIN: Warm, dry, no rash. NEURO: No focal deficits. Alert and oriented x3. PSYCH: Normal mood and affect. Course Vital Signs Vital signs: Vital Signs Temperature 97.2 F L 03/19/23 17:57 Pulse Rate 87 03/19/23 17:57 Respiratory Rate 18 03/19/23 17:57 Blood Pressure 138/67 03/19/23 17:57 Pulse Oximetry 95 03/19/23 17:57 Oxygen Delivery Room Air 03/19/23 17:57 Temperature 98.5 F 03/19/23 20:18 Pulse Rate 72 03/19/23 20:18 Respiratory Rate 15
[2023-03-19 19:09] VITALS: BP 127/101; PULSE 83; RESP 15; TEMP 36.6; O2SAT 95
[2023-03-19 20:18] VITALS: BP 129/87; PULSE 72; RESP 15; TEMP 36.9; O2SAT 93
== END 2023-03-19 20:19 | disposition home or self-care (01) ==
PROVIDERS: Emergency Provider Emergency Medicine
DX: S09.90XA Unspecified injury of head, initial encounter (principal); H11.32 Conjunctival hemorrhage, left eye; M25.562 Pain in left knee; W01.0XXA Fall on same level from slipping, tripping and stumbling without subsequent striking against object, initial encounter; I10 Essential (primary) hypertension; M81.0 Age-related osteoporosis without current pathological fracture; Z79.82 Long term (current) use of aspirin
CPT/HCPCS: 70450; 73562; 99284

== ENCOUNTER 2023-08-27 17:33 | Emergency (ER) | payer MEDICARE, SELFPAY ==
--- NOTE | ~2023-08-27 | CT_ITS ---
EXAMINATION: CT abdomen pelvis w con DATE: 08/27/2023 20:10 INDICATION: lower abd pain, alternating const/diarrhea TECHNIQUE: Computed tomography (CT) of the abdomen and pelvis was performed with 100 mL Omnipaque-350 intravenous contrast. Automated exposure control and iterative reconstruction technique were employe d. The dose-length product was 868.44 mGy-cm. COMPARISON: None. FINDINGS: Lower thorax: Granulomas calcifications. Minimal bibasilar atelectasis/scar Liver: Nodular appearing liver border. Biliary/Gallbladder: Gallbladder is normal. No bile duct dilation. Pancreas: No mass or duct dilation. Spleen: Normal. Adrenals:No mass. Kidneys: No suspicious mass, obstructing stone, or hydronephrosis. GI tract: Mild distal esophageal and gastric wall edema. No small or large bowel dilation. Appendix n ot visualized. Diverticulosis without diverticulitis. Mesentery/Peritoneum: No ascites, mass, or free air. Retroperitoneum: No mass. Atherosclerotic abdominal aortic and/or arterial calcifications. Pelvis: Mild urinary bladder edema. Absent uterus. Soft Tissues: Soft tissues and body wall unremarkable. Bones: No acute osseous finding. Chronic appearing grade 2-3 anterolisthesis at L4-5. IMPRESSION: Possible cirrhosis. Mild esophagitis/gastritis. Possible cystitis. Reviewed, dictated and finalized at location K. PECTING OBSERVER
[2023-08-27 17:35] VITALS: BP 129/64; PULSE 81; RESP 20; TEMP 36.9; O2SAT 100
[2023-08-27 18:14] LABS: Basophils Percent Auto 0.5 % (0.2-1.2); Eosinophils Absolute Auto 0.1 K/mm3 (0-0.3); Eosinophils Percent Auto 1.5 % (0-4.4); Hematocrit 37.1 % (37.0-47.0); Hemoglobin 11.8 g/dL (12.0-15.0); Immature Granulocyte Absolute 0.02 K/mm3 (0.00-0.031); Immature Granulocyte Percent A 0.3 % (0-0.5); Lymphocytes Absolute Auto 1.64 K/mm3 (0.9-3.2); Lymphocytes Percent Auto 28.1 % (18.3-44.2); Mean Corpuscular HGB Conc 31.8 g/dl (32-36); Mean Corpuscular Hemoglobin 29.5 pg (26-34); Mean Corpuscular Volume 92.8 fl (80-100); Mean Platelet Volume 10.1 fl (7.4-10.4); Monocytes Absolute Auto 1.1 K/mm3 (0.1-0.6); Monocytes Percent Auto 18.7 % (2.6-8.5); Neutrophils Percent Auto 50.9 % (45.5-73.1); Platelet Count Result 162 k/mm3 (150-375); Red Cell Distribution Width 15.6 % (11.5-14.5); White Blood Count 5.8 K/mm3 (4.5-10.0)
[2023-08-27 18:27] LABS: Alanine Aminotransferase 27 U/L (6-35); Albumin Level 3.8 g/dL (3.5-5.1); Alkaline Phosphatase 103 U/L (38-126); Anion Gap 10 mmol/L (8-16); Aspartate Amino Transferase 51 U/L (14-36); Bilirubin,Total 0.9 mg/dL (0.2-1.3); Blood Urea Nitrogen 21 mg/dL (7-17); Calcium 9.1 mg/dL (8.4-10.2); Carbon Dioxide 23 mmol/L (22-30); Chloride 102 mmol/L (98-107); Estimated CRCL calculation 39 ml/min; Estimated Glomerular Filt Rate 60; Glucose 104 mg/dL (65-110); Lipase 105 U/L (23-300); Potassium 4.5 mmol/L (3.4-5.0); Sodium 135 mmol/L (137-145)
--- NOTE | 2023-08-27 19:18 | ED.ABDPAIN ---
HPI - Abdominal Pain General Chief Complaint: Abdominal Pain Stated Complaint: abd pain Time Seen by Provider: 08/27/23 17:54 Source: patient Mode of arrival: ambulatory Limitations: no limitations History of Present Illness HPI narrative: Patient is an 82 y/o female who presents to the ED with c/o abdominal pain. Patient reports having chronic issues with constipation and diarrhea. She states she was most recently constipated, but began having watery diarrhea yesterday and today. Denies any rectal bleeding or melena. She developed mild pain across her lower abdomen yesterday which progressively worsened today. Denies pain being worse in either lower quadrant. She has not taken anything for the pain today. Denies nausea, vomiting, fevers, dysuria, hematuria. Related Data Home Medications Medication Instructions Recorded Confirmed ibuprofen 800 mg tablet 800 mg PO TID PRN Pain 02/25/21 11/29/21 metoprolol succinate 25 mg 25 mg PO QAM 02/25/21 11/29/21 tablet,extended release 24 hr omeprazole 20 mg tablet,delayed 20 mg PO DAILY 02/25/21 11/29/21 release aspirin 81 mg tablet,delayed 81 mg PO DAILY 05/05/21 11/29/21 release (Adult Low Dose Aspirin) ascorbic acid (vitamin C) 1,000 mg 1 g PO DAILY 08/16/21 11/29/21 tablet calcium carbonate 600 mg-vitamin 1 tablet PO DAILY 08/16/21 11/29/21 D3 5 mcg (200 unit) tablet cholecalciferol (vitamin D3) 50 50 mcg PO DAILY 08/16/21 11/29/21 mcg (2,000 unit) tablet xvlgtjqaelsq-Sk-vczc-minerals 1 tablet PO DAILY 08/16/21 11/29/21 Allergies Allergy/AdvReac Type Severity Reaction Status Date / Time hormone patches Allergy Mild Swelling, Uncoded 08/27/23 17:42 REDNESS AT SITE Review of Systems Review of Systems: CONSTITUTIONAL: Denies fever, chills, or sweats. CARDIOVASCULAR: Denies chest pain. RESPIRATORY: Denies dyspnea. GASTROINTESTINAL: See HPI. GENITOURINARY: Denies dysuria or hematuria. SKIN: Denies rash or itching. MUSCULOSKELETAL: Denies back pain, joint pain, or myalgia. All systems reviewed & are unremarkable except as noted in HPI and below PMFSH Past Medical History Medical History Hypertension Obesity Osteoporosis Surgical History Surgical History History of surgery on arm Family History Family History Mother Arthritis Social History Social History Smoking status: Never smoker Second hand tobacco smoke exposure: No Alcohol intake: never Substance use: never Substance use type: does not use Lack of Transportation: No Lack of Food: Never True Current Housing: I Have Housing Concerned About Future Housing: No Difficulty Paying Gas/Electric Bills: No Difficulty Paying for Meds: No Currently Unemployed: No Education: High School Diploma/GED Difficulty w/ Childcare or Family Care: No Living arrangements: with family Additional living arrangements comments: [facility] Spiritual care concerns: No Exam Narrative: GENERAL: Elderly, obese with BMI of 31.4, non-toxic, in no acute distress. HEAD: Normocephalic, atraumatic. NECK: Supple. No adenopathy, no masses. RESPIRATORY: Airway patent, respirations nonlabored. Clear to auscultation bilaterally, no rales, rhonchi, wheezing. CARDIOVASCULAR: Regular rate and rhythm without murmurs, rubs, or gallops. Radial pulses 2+ and equal bilaterally. ABDOMINAL: Soft, mild tenderness across lower abdomen, no evidence of surgical abdomen, no rebound. Nondistended, no hepatosplenomegaly. Normoactive BS. MUSCULOSKELETAL: Moves all extremities. No gross deformities. SKIN: Warm, dry, normal color. No rashes. NEURO: A&O X3. [place]. Speech clear. Cranial nerves II-XII grossly intact. Steady gait. No ataxic movements. PSYCHIA
[2023-08-27 19:39] VITALS: BP 98/67; PULSE 81; RESP 15; TEMP 36.9; O2SAT 98
[2023-08-27] MEDS: SODIUM CHLORIDE 0.9% IV 1,000 ML 999 ML IV CONT ×2 (19:41→21:59)
[2023-08-27 21:01] VITALS: BP 113/76; PULSE 75; RESP 15; O2SAT 100
[2023-08-27 21:40] LABS: Appearance Urine Turbid (Clear); Bacteria Urine 4+ /hpf; Bilirubin Urine Negative (Negative); Blood Urine 2+ (Negative); Color Urine Dark Yellow (Yellow); Glucose Urine UA Negative (Negative); Ketones Urine Negative (Negative); Leukocyte Esterase Ur 2+ LEU/UL (Negative); Need Manual Microscopic Reviewed; Nitrate Urine Negative (Negative); Protein Urine 1+ mg/dL (Negative); Squamous Epithelial Cell Urine Moderate /hpf (Few); WBC Urine >100 /hpf; pH Urine 6.5 (5.0-9.0)
[2023-08-27 21:46] LABS: Specific Grav Ur 1.058 (1.001-1.035)
[2023-08-27 21:47] LABS: Add Urine Microscopic? YES
[2023-08-27 23:08] VITALS: BP 111/53; PULSE 75; RESP 17; O2SAT 98
== END 2023-08-27 23:26 | disposition home or self-care (01) ==
PROVIDERS: Emergency Provider Physician Assistant
DX: N39.0 Urinary tract infection, site not specified (principal); R19.7 Diarrhea, unspecified; R10.30 Lower abdominal pain, unspecified; R93.2 Abnormal findings on diagnostic imaging of liver and biliary tract; I10 Essential (primary) hypertension; E66.9 Obesity, unspecified; Z68.31 Body mass index [BMI] 31.0-31.9, adult; M81.0 Age-related osteoporosis without current pathological fracture; K20.90 Esophagitis, unspecified without bleeding; K29.70 Gastritis, unspecified, without bleeding
CPT/HCPCS: 36415; 74177; 80053; 81001; 83605; 83690; 85025; 87086; 87088; 96361; 96365; 99284; J0696; J7030; Q9967

== ENCOUNTER 2023-09-27 14:31 | Emergency (ER) | payer MEDICARE, SELFPAY ==
[2023-09-27] VITALS (16 sets, daily range): BP systolic 97–125; BP diastolic 62–76; PULSE 77–96; RESP 15–23; TEMP 36.6; O2SAT 93–98
--- NOTE | ~2023-09-27 | CT_ITS ---
EXAMINATION: CT cervical spine wo con DATE: 09/27/2023 18:34 INDICATION: poss trauma, AMS TECHNIQUE: Computed tomography (CT) of the cervical spine was performed without intravenous contrast. Automated exposure control and iterative reconstruction technique were employed. The dose-length pro duct was 277.56 mGy-cm. COMPARISON: X-ray C-spine 06/08/2016. FINDINGS: Vertebral Body Alignment: Intact. Grade 1 anterolistheses at C3-4, C4-5, and T2-3. Craniocervical and atlantoaxial alignment: Moderate degenerative change. Alignment intact. Osseous structures/fracture: No evidence of a lytic or blastic process in the visualized spine. No e vidence of acute fracture. Cervical soft tissues: The paraspinal soft tissues planes are maintained. Degenerative changes: Multilevel moderate and severe degenerative disc disease. Multilevel moderate f acet arthropathy. No severe central canal or neural foraminal narrowing. IMPRESSION: No acute fracture or traumatic malalignment in the cervical spine. 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 Reviewed, dictated and finalized at location K. NDWATER MONITORING TECHNICIAN
--- NOTE | ~2023-09-27 | CT_ITS ---
EXAMINATION: CT brain wo con DATE: 09/27/2023 18:32 INDICATION: AMS, poss trauma? . TECHNIQUE: Computed tomography (CT) of the head was performed without intravenous contrast. The mA wa s adjusted according to patient size. Iterative reconstruction technique was employed. The dose-lengt h product was 605.33 mGy-cm. COMPARISON: 03/19/2023. FINDINGS: No acute intracranial hemorrhage or extra-axial fluid collection. No hydrocephalus, mass, or herniation. No acute ischemic infarct. Unremarkable dural venous sinus attenuation. No acute osseous abnormality. The aerated spaces are clear. Mild chronic white matter change. Mild atherosclerotic intracranial calcification. Bilateral lens rep lacements. IMPRESSION: No acute intracranial process. Reviewed, dictated and finalized at location K. RMATION RESOURCES DIRECTOR
--- NOTE | ~2023-09-27 | CT_ITS ---
EXAMINATION: CT chest abdomen pelvis w con DATE: 09/27/2023 18:40 INDICATION: large ecchymosis left abdominal wall, AMS, trauma? . TECHNIQUE: Computed tomography (CT) of the chest, abdomen, and pelvis was performed with 100 mL Omnip aque-350 intravenous contrast. Automated exposure control and iterative reconstruction technique were employed. The dose-length product was 1402.96 mGy-cm. COMPARISON: CT abdomen pelvis 08/27/2023 FINDINGS: CHEST: No thoracic aortic injury. No mediastinal hematoma. No pericardial effusion. No acute lung injury. No pleural effusion or pneumothorax. ABDOMEN/PELVIS: No solid organ injury. Nodular liver border. No evidence of bowel or mesenteric injury. Mild distal esophageal and gastric wall edema. No free fluid or free air. No retroperitoneal hematoma. Enlarged retroperitoneal and perisplenic lymph nodes. Pelvic contents are atraumatic. Absent uterus. Bladder wall thickening in a partially distended urina ry bladder. Small volume free pelvic fluid. MUSCULOSKELETAL: No acute fracture. No fracture or traumatic malalignment of the thoracic or lumbar spine. Chronic grade 2 anterolisthesi s at L5-S1, with fusion. Old right transverse process fractures. IMPRESSION: No acute traumatic process detected in the chest, abdomen, or pelvis. Mild esophagitis/gastritis. Possible cirrhosis. Abdominal lymphadenopathy, new since the prior study. Cystitis versus wall thickening from incomplete distention. Small volume free pelvic fluid, new since the prior study. Reviewed, dictated and finalized at location K. VALVER
--- NOTE | 2023-09-27 14:48 | ECG_ITS ---
Measurements Intervals [employer] Rate: 91 P: 0 MA: 208 QRS: 11 QRSD: 94 T: 37 QT: 368 QTc: 455 Interpretive Statements SINUS RHYTHM LOW QRS VOLTAGE IN PRECORDIAL LEADS [QRS DEFLECTION < 1.0 mV IN CHEST LEADS] POSSIBLE INFERIOR MYOCARDIAL INFARCTION , PROBABLY OLD [30 ms Q WAVE IN II/aVF] ABNORMAL ECG COMPARED TO ECG 03/25/2021 15:18:55 NO SIGNIFICANT CHANGES Electronically Signed On 09-28-2023 13:51:42 MANUFACTURING MAINTENANCE TECHNICIAN by Rito Jay M.D.
[2023-09-27 16:49] LABS: Glucose Point of Care 114 mg/dl (65-105)
[2023-09-27 17:03] LABS: Hematocrit 31.7 % (37.0-47.0); Hemoglobin 10.3 g/dL (12.0-15.0); Mean Corpuscular HGB Conc 32.5 g/dl (32-36); Mean Corpuscular Volume 92.4 fl (80-100); Mean Platelet Volume 10.8 fl (7.4-10.4); Platelet Count Result 101 k/mm3 (150-375); Red Blood Count 3.43 M/mm3 (4.2-5.4); Red Cell Distribution Width 18.1 % (11.5-14.5)
[2023-09-27 17:13] LABS: Appearance Urine Clear (Clear); Bilirubin Urine Negative (Negative); Blood Urine Negative (Negative); Color Urine Yellow (Yellow); Creatine Kinase 64 U/L (30-135); Glucose Urine UA Negative (Negative); Ketones Urine Negative (Negative); Lactic Acid Reflex 1.6 mmol/L (0.7-2.0); Leukocyte Esterase Ur Negative LEU/UL (Negative); Lipase 82 U/L (23-300); Nitrate Urine Negative (Negative); Protein Urine Negative (Negative); Specific Grav Ur 1.015 (1.001-1.035); pH Urine 6.5 (5.0-9.0)
[2023-09-27 17:15] LABS: INR 1.3; Prothrombin Time 16.4 Seconds (11.1-14.7)
[2023-09-27] MEDS: SODIUM CHLORIDE 0.9% IV 1,000 ML 999 ML IV CONT (17:15)
[2023-09-27 17:20] LABS: Add Urine Microscopic? NO
[2023-09-27 17:25] LABS: Troponin I < 0.012 ng/mL (0.000-0.034)
[2023-09-27 17:36] LABS: Band Neutrophils Percent 1 % (0-6); Lymphocytes Absolute Manual 1.44 K/mm3 (1.1-4.5); Monocytes Percent Manual 10 % (3-9); Neutrophils Absolute Manual 3.96 K/mm3 (1.7-7.2); Neutrophils Percent Manual 65 % (46-73); Total Cells Counted 100
[2023-09-27 17:37] LABS: Anisocytosis 3+ (NORMAL); Platelet Estimate Decreased (Adequate); Schistocytes None Seen (NORMAL)
[2023-09-27 17:48] LABS: Influenza A QL RT-PCR Negative (Negative); Influenza B QL RT-PCR Negative (Negative); RSV RNA, RT-PCR Negative (Negative); SARS-CoV-2 RNA PCR Negative (Negative)
[2023-09-27 18:10] LABS: Alanine Aminotransferase 21 U/L (6-35); Albumin Level 2.7 g/dL (3.5-5.1); Alkaline Phosphatase 116 U/L (38-126); Anion Gap 5 mmol/L (8-16); Aspartate Amino Transferase 77 U/L (14-36); Bilirubin,Total 1.3 mg/dL (0.2-1.3); Blood Urea Nitrogen 17 mg/dL (7-17); Calcium 7.6 mg/dL (8.4-10.2); Carbon Dioxide 19 mmol/L (22-30); Chloride 103 mmol/L (98-107); Estimated CRCL calculation 63 ml/min; Estimated Glomerular Filt Rate > 60; Glucose 92 mg/dL (65-110); Potassium 3.7 mmol/L (3.4-5.0); Sodium 127 mmol/L (137-145)
--- NOTE | 2023-09-27 18:11 | ED.AMS ---
HPI - Altered Mental Status General Chief Complaint: Altered Mental Status Stated Complaint: UTI, confusion Time Seen by Provider: 09/27/23 16:34 History of Present Illness HPI narrative: Patient is an 82-year-old female presenting with cough and vomiting. Patient's son is that bedside and helps with the history. States that she has been treated for a UTI a couple of times in the last month. She has been increasingly confused lately and has been slurring her speech for the last month. States that for the last few days she has had a productive cough and had several episodes of vomiting yesterday. States she has a very large bruise on her abdomen from a large dog jumping on her. Patient denies any pain. No vomiting today. Her only complaint is cough. Related Data Home Medications Medication Instructions Recorded Confirmed ibuprofen 800 mg tablet 800 mg PO TID PRN Pain 02/25/21 11/29/21 metoprolol succinate 25 mg 25 mg PO QAM 02/25/21 11/29/21 tablet,extended release 24 hr omeprazole 20 mg tablet,delayed 20 mg PO DAILY 02/25/21 11/29/21 release aspirin 81 mg tablet,delayed 81 mg PO DAILY 05/05/21 11/29/21 release (Adult Low Dose Aspirin) ascorbic acid (vitamin C) 1,000 mg 1 g PO DAILY 08/16/21 11/29/21 tablet calcium carbonate 600 mg-vitamin 1 tablet PO DAILY 08/16/21 11/29/21 D3 5 mcg (200 unit) tablet cholecalciferol (vitamin D3) 50 50 mcg PO DAILY 08/16/21 11/29/21 mcg (2,000 unit) tablet tbxpnlqtzqay-Od-gjvt-minerals 1 tablet PO DAILY 08/16/21 11/29/21 Allergies Allergy/AdvReac Type Severity Reaction Status Date / Time hormone patches Allergy Mild Swelling, Uncoded 08/27/23 17:42 REDNESS AT SITE Review of Systems Review of Systems: All systems reviewed & are unremarkable except as noted in HPI and below PMFSH Past Medical History Medical History Hypertension Obesity Osteoporosis Surgical History Surgical History History of surgery on arm Family History Family History Mother Arthritis Social History Social History Smoking status: Never smoker Second hand tobacco smoke exposure: No Alcohol intake: never Substance use: never Substance use type: does not use Lack of Transportation: No Lack of Food: Never True Current Housing: I Have Housing Concerned About Future Housing: No Difficulty Paying Gas/Electric Bills: No Difficulty Paying for Meds: No Currently Unemployed: No Education: High School Diploma/GED Difficulty w/ Childcare or Family Care: No Living arrangements: with family Additional living arrangements comments: [facility] Spiritual care concerns: No Exam Narrative: GENERAL: Elderly female in no acute distress lying in bed, pleasant cooperative HEAD: Normocephalic, atraumatic. EYES: PERRLA and EOMI. ENT: Mucous membranes moist. NECK: Supple. CHEST: No respiratory distress. coarse breath sounds in the bases, patient with productive cough during evaluation HEART: Regular rate and rhythm ABDOMEN: Soft, nontender, large ecchymosis in various stages of healing anterior abdomen EXTREMITIES: Normal range of motion. No edema. SKIN: Warm, dry, as above NEURO: Alert and oriented x3. 5/5 strength in all extremities, no sensory deficits PSYCH: Normal mood and affect. Course Vital Signs Vital signs: Vital Signs Temperature 98 F 09/27/23 14:36 Pulse Rate 90 09/27/23 14:36 Respiratory Rate 16 09/27/23 14:36 Blood Pressure 97/66 L 09/27/23 14:36 Pulse Oximetry 93 09/27/23 14:36 Oxygen Delivery Room Air 09/27/23 14:36 Temperature 98 F 09/27/23 14:36 Pulse Rate 89 09/27/23 22:40 Respiratory Rate 15 09/27/23 22:40 Blood Pressure 125/76 09/27/23 22:40 Puls
[2023-09-27 20:30] LABS: Troponin I < 0.012 ng/mL (0.000-0.034)
== END 2023-09-27 23:01 | disposition home or self-care (01) ==
PROVIDERS: Emergency Provider Emergency Medicine
DX: R05.9 Cough, unspecified (principal); R53.1 Weakness; Z20.822 Contact with and (suspected) exposure to COVID-19; I10 Essential (primary) hypertension; M81.0 Age-related osteoporosis without current pathological fracture; Z79.82 Long term (current) use of aspirin; E66.9 Obesity, unspecified; Z68.32 Body mass index [BMI] 32.0-32.9, adult; R94.31 Abnormal electrocardiogram [ECG] [EKG]; K20.90 Esophagitis, unspecified without bleeding; K29.70 Gastritis, unspecified, without bleeding; R93.41 Abnormal radiologic findings on diagnostic imaging of renal pelvis, ureter, or bladder; R93.5 Abnormal findings on diagnostic imaging of other abdominal regions, including retroperitoneum
CPT/HCPCS: 36415; 70450; 71260; 72125; 74177; 80053; 81003; 82550; 82948; 83605; 83690; 84484; 85025; 85610; 85730; 87637; 93005; 96360; 99284; J7030; Q9967